=== PATIENT | male | born 1960 | race Caucasian/White ===

== ENCOUNTER 2020-03-09 14:16 | Inpatient (IN) | payer OTHER ==
[~2020-03-09] VITALS: Ht 177.8 cm; Wt 83.5 kg
[~2020-03-09 14:16] MED LIST: GLUCOPHAGE1000 MG PO; LISINOPRIL5 MG PO; NORCO 5-325 TA1 EACH PO; UNKNOWN CHOLESTEROL; [UNRECOGNIZED DRUG - REMARK]
[2020-03-09 14:29] VITALS: BP 155/90
[2020-03-09] MEDS ORDERED: FAST ACTING INSULIN SUBQ (14:33)
[2020-03-09] MEDS ORDERED: LANTUS SUBQ (14:33)
[2020-03-09 15:30] LABS: ABSOLUTE BASOPHILS 0.1 thou/uL (0.0-0.2); ABSOLUTE MONOCYTES 0.9 thou/uL (0.0-1.2); ABSOLUTE NEUTROPHILS 10.4 thou/uL (1.6-8.1); BASOPHILS 0.5 %; EOSINOPHILS 0.2 %; HEMATOCRIT 42.4 % (42.0-52.0); HEMOGLOBIN 14.1 gm/dL (14.0-18.0); MCH 28.6 pg (26.0-34.0); MCHC 33.3 g/dL (28.0-37.0); MCV 85.9 fL (80.0-100.0); MONOCYTES 7.5 %; MPV 8.8 fl. (7.2-11.1); NUCLEATED RBCS 0 /100WBC; PLATELET COUNT* 266 thou/uL (150-400); POLYS 83.8 %; RBC 4.93 mil/uL (4.50-6.00); RDW-CV 13.1 % (10.5-14.5); WBC 12.4 thou/uL (4.0-11.0)
[2020-03-09 15:33] LABS: CALCIUM 9.2 mg/dL (8.5-10.1); CREATININE 1.2 mg/dL (0.6-1.3); POTASSIUM 4.6 mmol/L (3.5-5.1)
[2020-03-09 15:38] LABS: TOTAL BILIRUBIN 0.9 mg/dL (<0.1-1.0); TOTAL PROTEIN 7.7 g/dL (6.4-8.2)
[2020-03-09 17:54] VITALS: BP 128/81
[2020-03-09 18:01] VITALS: BP 165/88
--- NOTE | 2020-03-09 18:51 | NUR ---
PT RESTING IN BED. PT DENIED ANY NEEDS. NPO AFTER MIDNIGHT. FALL RISK PRECAUTIONS IN PLACE. HOURLY ROUNDING COMPLETED. WILL CONTINUE TO MONITOR.
[2020-03-09 21:20] VITALS: BP 110/68
[2020-03-10 00:30] VITALS: BP 180/62
[2020-03-10 04:03] LABS: ABSOLUTE BASOPHILS 0.1 thou/uL (0.0-0.2); ABSOLUTE EOSINOPHILS 0.1 thou/uL (0.0-0.7); ABSOLUTE LYMPHOCYTES 2.1 thou/uL (0.8-5.3); ABSOLUTE NEUTROPHILS 5.4 thou/uL (1.6-8.1); BASOPHILS 0.8 %; EOSINOPHILS 1.5 %; HEMATOCRIT 38.9 % (42.0-52.0); HEMOGLOBIN 13.2 gm/dL (14.0-18.0); LYMPHOCYTES 24.5 %; MCH 28.6 pg (26.0-34.0); MCHC 34.1 g/dL (28.0-37.0); MONOCYTES 11.6 %; MPV 8.5 fl. (7.2-11.1); NUCLEATED RBCS 0 /100WBC; PLATELET COUNT* 271 thou/uL (150-400); POLYS 61.6 %; RBC 4.62 mil/uL (4.50-6.00); RDW-CV 12.9 % (10.5-14.5); WBC 8.7 thou/uL (4.0-11.0)
[2020-03-10 04:43] LABS: POTASSIUM 3.5 mmol/L (3.5-5.1)
--- NOTE | 2020-03-10 05:02 | NUR ---
PATIENT HAS SLEPT WELL THROUGHOUT THE NIGHT. VSS ON RA. NO C/O PAIN. MEDICATIONS GIVEN ORDERED AND CHARTED. PATIENT HAS RMAINED NPO SINCE MIDNIGHT. IV IN RIGHT AC-NS @ 100ML/HR. IV ABT GIVEN ORDERED AND CHARTED. PATIENT INSTRUCTED TO USE CALL LIGHT WHEN NEEDING ASSISTANCE. HOURLY ROUNDS MADE. WILL CONTINUE WITH PLAN OF CARE AND NURSING TO MONITOR.
[2020-03-10 07:00] VITALS: BP 136/85
--- NOTE | 2020-03-10 11:52 | NUR ---
CM SPOKE TO THE PT TO DISCUSS HIS HOME SITUATION, DISCHARGE PLANNING, AND TO INFORM OF THE ROLE OF CM. PT A&O. PT ACTIVE AND INDEPENDENT WITH ADL'S, AND IS SELF-EMPLOYED. PT HAS 0 HX OF HH OR SNF. PT DOES NOT HAVE INSURANCE AND THIS MAY BE A BARRIER FOR DISCHARGE PLANNING DEPENDING ON WHAT IS NEEDED AT D/C. CM PROVIDED THE PT WITH A COMMUNITY RESOURCE LIST, CONTACT INFO FOR THE [facility], AND A MEDIC[employer] ASSISTANCE CO-PAY CARD. CM WILL REMAIN AVAILABLE TO ASSIST AND FOLLOW NEEDED.
--- NOTE | 2020-03-10 13:56 | NUR ---
Nutrition: Pt admitted with Lt foot wound. Big toe is black. Wt: 184#; CHO controlled diet ordered. BG 126-216, alb 3. RD will order Norbert for wound healing. GOALS: tight BG control, good po intake, Norbert BID. Consider mild risk.
--- NOTE | 2020-03-10 14:43 | CON ---
[address] [address] CONSULTATION Name: ANNELIESE ISSA Room: [address] IN .R.#: [id number] Admission: 03/09/20 Attend Phys: Manoj Blanco MD Discharge: Date of : 60 Report #: [id number] THIS REPORT FOR: //name// cc: VITO Hall family physician/PCP VITO Hall family physician/PCP ~ THIS REPORT FOR: //name// CC: Manoj Blanco FAM physician/PCP ADMISSION DIAGNOSIS: Diabetic foot ulceration, left great toe with soft tissue infection . HISTORY OF PRESENT ILLNESS: A 59-year-old male admitted through the ED for worsening infection to the left medial great toe with ulceration. He denies fevers, chills, nausea or malaise. He first noticed a blister roughly 5 days ago that continuing worsened, then increasingly enlarged with increased inflammation to the foot. He has type 2 diabetes mellitus with peripheral neuropathy. He is on parenteral vancomycin 1.25 grams q. 12 hours. Wound culture pending, blood cultures pending. X-ray negative for bone destruction underlying the left hallux ulceration. LABORATORY DATA: WBC 8.7, RBC 4.62, hemoglobin 13.2, hematocrit 38.9, platelets 271. BUN 13, creatinine 1.0, glucose 126. Hemoglobin A1c 10.0. PHYSICAL EXAMINATION: Large penetrating ulceration to the left medial hallux that measures roughly 4.0 x 4.0 x 0.4 cm. The wound has yellow/brown fibronecrotic tissue with no granulation. There is surrounding inflammation and swelling consistent with cellulitis extending to the dorsal foot and ankle. He has strong dorsalis pedis and posterior tibial pulses to both feet. He has abundant digital and pedal hair growth, no pallor or cyanosis to the feet. No left popliteal adenopathy or calf pain. IMPRESSION: Diabetic foot ulceration to left medial hallux with deep tissue infection. PLAN: An excisional ulcer debridement performed with scissors to excise subcutaneous tissue from the wound bed down to bleeding tissue. The wound was cleansed and dressed with Aquacel Ag and rolled gauze. I ordered an MRI of the left foot with contrast to evaluate for osteomyelitis. Bed rest today. I explained to the patient, he may require hallux amputation should he have or develop osteomyelitis. <ELECTRONICALLY SIGNED> By: Eduardo Cadet DPM 03/10/20 1443 0730 [id number] Cadet DPM /nt
[2020-03-10 16:26] VITALS: BP 140/94
--- NOTE | 2020-03-10 16:40 | NUR ---
PT REMAINED ALERT AND ORIENTED. PT RESTING IN BED. FALL RISK PRECAUTIONS IN PLACE. HOURLY ROUNDING COMPLETED. WILL CONTINUE TO MONITOR.
[2020-03-10 18:27] LABS: URINE BILIRUBIN NEGATIVE (Negative); URINE BLOOD NEGATIVE (Negative); URINE CLARITY CLEAR; URINE COLOR YELLOW; URINE GLUCOSE-RANDOM 3+ (Negative); URINE KETONES TRACE (Negative); URINE LEUKOCYTES-REFLEX NEGATIVE (Negative); URINE NITRITE-REFLEX NEGATIVE (Negative); URINE PROTEIN NEGATIVE (Negative)
[2020-03-10 20:30] VITALS: BP 126/71
[2020-03-11 04:00] VITALS: BP 100/48; BP 128/87
--- NOTE | 2020-03-11 04:23 | NUR ---
PT HAD UNEVENTFUL NIGHT, DENIES PAIN, HAS BEEN NPO SINCE MIDNIGHT FOR SURG TODAY. PM BLOODSUGAR WAS 213 AND INSULIN WAS ADMINISTERED, PT SAFETY MEASURES IN PLACE, BED ALARM ON WITH BED IN LOWEST POSITION.
[2020-03-11 04:37] LABS: ABSOLUTE BASOPHILS 0.1 thou/uL (0.0-0.2); ABSOLUTE EOSINOPHILS 0.2 thou/uL (0.0-0.7); ABSOLUTE LYMPHOCYTES 1.7 thou/uL (0.8-5.3); ABSOLUTE MONOCYTES 0.9 thou/uL (0.0-1.2); ABSOLUTE NEUTROPHILS 5.1 thou/uL (1.6-8.1); BASOPHILS 0.8 %; EOSINOPHILS 2.4 %; HEMATOCRIT 39.8 % (42.0-52.0); HEMOGLOBIN 13.7 gm/dL (14.0-18.0); LYMPHOCYTES 21.7 %; MCH 28.7 pg (26.0-34.0); MCHC 34.3 g/dL (28.0-37.0); MCV 83.7 fL (80.0-100.0); MONOCYTES 11.3 %; MPV 8.8 fl. (7.2-11.1); NUCLEATED RBCS 0 /100WBC; PLATELET COUNT* 271 thou/uL (150-400); POLYS 63.8 %; RBC 4.75 mil/uL (4.50-6.00); RDW-CV 12.8 % (10.5-14.5)
[2020-03-11 05:00] LABS: CALCIUM 8.4 mg/dL (8.5-10.1); POTASSIUM 3.8 mmol/L (3.5-5.1)
[2020-03-11 08:30] VITALS: BP 160/84
--- NOTE | 2020-03-11 14:41 | NUR ---
CM INFORMED OF PLANNED SX FOR PT, AND POSSIBLE PLAN FOR PT TO TRANSITION TO [facility] ABT'S PRIOR TO D/C. CM LINDSAY REMAIN AVIALABLE TO ASSIST AND FOLLOW NEEDED.
[2020-03-11 15:24] VITALS: BP 142/89
--- NOTE | 2020-03-11 19:13 | NUR ---
Pt AOx4. Pt up ad liliana in room. Tolerating IV antibiotics. C/O mild pain in bilat feet, [place] PO ordered for pain. Pt is on carb control diet and receiving insulin. Surgery scheduled for tomorrow. Pt aware. will continue to monitor
[2020-03-11 20:00] VITALS: BP 133/72
--- NOTE | 2020-03-12 05:22 | NUR ---
PT HAD COMPLAINT OF NEUROPATHY PAIN THIS HS, HE TAKES NEURONTIN AND SOMEHOW DID NOT GET IT ON HIS MED LIST ON ADMIT, DR MILLER WAS CONTACTED AND THIS WAS STARTED FOR HIS PAIN. PT CONTINUES TO RECEIVE VANCOMYCIN IV AND HAS BEEN NPO SINCE MIDNIGHT FOR PENDING SURG TODAY WITH DR CHAVARRIA. LOVENOX HAS BEEN HELD LAST PM AND THE AM DOSE TODAY, WOUND DSG IS CDI, SAFETY MEASURES IN PLACE, WCTM
[2020-03-12 08:37] VITALS: BP 123/86
[2020-03-12 09:58] VITALS: BP 123/86
--- NOTE | 2020-03-12 13:00 | NUR ---
PT.IN SURGERY THIS AFTERNOON. DISCUSSED WITH . HE SAID PLAN WILL BE FOR PT.TO HAVE IVAB THROUGH THE WEEKEND AND DISCHARGE HOME SUNDAY ON ORAL ANTIBIOTICS.
--- NOTE | 2020-03-12 14:34 | EKG ---
[place] [address] ELECTROCARDIOGRAM REPORT Name: ANNELIESE ISSA Room: [address] ADM IN M.R.#: [id number] Admission: 03/09/20 Attend Phys: Manoj Blanco, Discharge: Date of : 60 Date of Service: 03/12/20 1105 Report #: [id number] THIS REPORT FOR: //name// [facility] Test Date: 2020-03-12 Test Time: 11:05:06 Pat Name: ANNELIESE ISSA Department: Room: [address] Gender: M [employer] Vehicle Operator: : 1960 Requested By: Eduardo Cadet Order Number: [id number] Sara MD: Antonio Guillen Measurements Intervals [place] Rate: 71 P: 54 TN: 167 QRS: 28 QRSD: 96 T: 41 QT: 381 QTc: 414 Interpretive Statements Sinus rhythm Baseline wander in lead(s) V3 No previous ECG available for comparison Electronically Signed On 03-12-2020 14:34:19 CDT by Antonio Guillen [email or web address] <ELECTRONICALLY SIGNED> By: Antonio Guillen MD, [facility] 03/12/20 1434 1105 1105 Antonio Guillen MD, [facility] /EPI
--- NOTE | 2020-03-12 17:15 | NUR ---
PT A&Ox4. CURRENTLY IN SURGERY. PRE SURGERY PT WAS ON RA, UP AD EARL AND ROUTINE VITALS. IV RIGHT FA PATENT. PT STABLE. WILL UPDATE NOTE ONCE PT RETURNS.
[2020-03-12 18:26] VITALS: BP 137/80
--- NOTE | 2020-03-12 18:44 | NUR ---
PT RETURNED TO FLOOR FROM PACU ABOUT 1824. PT STABLE. VITALS STABLE. ON RA. IV PATENT. TOLERATING DIET. DENIED N/V. RATING PAIN 6/10 ON SURGICAL FOOT, DENIED PAIN MEDS AT THIS TIME. NON WEIGHT BEARING ON LEFT FOOT. DRESSING C/D/I. WILL CONTINUE TO MONITOR.
[2020-03-12 20:10] VITALS: BP 114/79
[2020-03-13 00:22] VITALS: BP 95/56
[2020-03-13 03:49] VITALS: BP 138/88
[2020-03-13 04:01] LABS: CALCIUM 8.3 mg/dL (8.5-10.1); CREATININE 1.1 mg/dL (0.6-1.3); MAGNESIUM 1.8 mg/dL (1.8-2.4); POTASSIUM 4.1 mmol/L (3.5-5.1)
--- NOTE | 2020-03-13 04:28 | NUR ---
PATIENT HAS REMAINED ALERT AND ORIENTED X 4 THROUGHOUT THE SHIFT AND RESTING QUIETLY ON HOURLY ROUNDS. UP TO BR TO VOID. AMBULATION WITH WALKER/SBA AND NWB LLE. STEADY GAIT. DRESSING LEFT FOOT CLEAN AND DRY. ELEVATED ON FOLDED BLANKET FROM OR. LOW-GRADE TEMPERATURE. TYLENOL PROVIDED EARLY AM. IV ANTIBIOTICS PER ORDER. CONTINUE TO MONITOR.
[2020-03-13 08:00] VITALS: BP 97/57
--- NOTE | 2020-03-13 18:18 | NUR ---
PATIENT ALERT AND ORIENTED X 4. VITAL SIGNS STABLE ON ROOM AIR. UP ASSISTANCE IN ROOM. IV PATENT AND SALINE LOCKED. ANTIBIOTICS GIVEN PER OCT. DENIES NAUSEA AT THIS TIME. PAIN BEING MANAGED WITH PO MEDICATION. DRESSING TO LEFT FOOT CLEAN, DRY, INTACT. HOURLY ROUNDS MAINTAINED THROUGHOUT THE SHIFT. CALL LIGHT WITHIN REACH. NURSING WILL CONTINUE TO MONITOR.
[2020-03-13 20:00] VITALS: BP 102/60
[2020-03-14] VITALS: BP 92/63
[2020-03-14 04:12] LABS: HEMOGLOBIN 13.2 gm/dL (14.0-18.0); MCH 29.1 pg (26.0-34.0); MCHC 34.7 g/dL (28.0-37.0); MCV 83.7 fL (80.0-100.0); MPV 8.3 fl. (7.2-11.1); RBC 4.54 mil/uL (4.50-6.00); RDW-CV 13.1 % (10.5-14.5); WBC 8.9 thou/uL (4.0-11.0)
[2020-03-14 04:24] LABS: CALCIUM 8.3 mg/dL (8.5-10.1); CREATININE 0.9 mg/dL (0.6-1.3); MAGNESIUM 1.9 mg/dL (1.8-2.4); POTASSIUM 4.2 mmol/L (3.5-5.1)
[2020-03-14 08:00] VITALS: BP 125/83
[2020-03-14 15:35] VITALS: BP 117/67
--- NOTE | 2020-03-14 17:37 | NUR ---
PATIENT ALERT AND ORIENTED X 4. VITAL SIGNS STABLE ON ROOM AIR. UP WITH ASSISTANCE TO BATHROOM. IV PATENT AND SALINE LOCKED. ANTIBIOTICS GIVEN PER OCT. DENIES NAUSEA AT THIS TIME. PAIN BEING MANAGED WITH PO MEDICATION. DRESSING TO LEFT FOOT CHANGED BY DR. CHAVARRIA TODAY. CLEAN, DRY, AND INTACT. SCD IN PLACE TO RIGHT CALF. FALL PRECAUTIONS IN PLACE AND BED ALARM ON. HOURLY ROUNDS MAINTAINED THROUGHOUT THE SHIFT. CALL LIGHT WITHIN REACH. NURSING WILL CONTINUE TO MONITOR.
[2020-03-14 19:50] VITALS: BP 110/62
--- NOTE | 2020-03-15 06:33 | NUR ---
PATIENT HAS SLEPT WELL THROUGHOUT MOST OF THE NIGHT. VSS ON RA. MEDICATIONS GIVEN ORDERED AND CHARTED. PAIN WELL CONTROLLED. PATIENT IS UP WITH WALKER TO THE BATHROOM. DRESSING TO LEFT LOWER EXTREMITY IS C/D/I. IV IN RIGHT FOREARM-SL. PATIENT INSTRUCTED TO USE CALL LIGHT WHEN NEEDING ASSISTANCE. HOURLY ROUNDS MADE. WILL CONTINUE WITH PLAN OF CARE AND NURSING TO MONITOR.
[2020-03-15 08:00] VITALS: BP 138/88
--- NOTE | 2020-03-15 10:07 | NUR ---
cm f/u with pt to see if he would need med assist, pt states he makes an average of $2000/mo and he can afford his medication. normally his "highest cost $50.00." pt stated he is eager to d/c as he is hopeful it will be today.
[2020-03-15 15:48] VITALS: BP 116/74
--- NOTE | 2020-03-15 18:09 | NUR ---
PT A&Ox4. VITALS STABLE. IV PATENT, ABX INFUSING. DRESSING ON LEFT FOOT C/D/I. PAIN CONTROLLED. DENIED N/V. SCD IN PLACE. UP WITH STB USING WALKER. NWB ON LEFT FOOT. CALL LIGHT WITHIN REACH. WILL CONTINUE TO MONITOR.
[2020-03-15 19:37] VITALS: BP 112/68
--- NOTE | 2020-03-16 04:11 | NUR ---
PT A&OX4, ON ROOM AIR, VSS, PT NON-WEIGHT BEARING LLE, ACCU CHECK COMPLETED, HOURLY ROUNDINGS COMPLETED, PT SLEEPING WELL. WILL CONTINUE WITH PLAN OF CARE.
[2020-03-16 08:45] VITALS: BP 133/84
[2020-03-16] MEDS ORDERED: NEURONTIN 300M300 M2 PO (10:30)
[2020-03-16] MEDS ORDERED: HYDROCODON-ACE1 EAC7 PO (10:30)
[2020-03-16] MEDS ORDERED: MIRALAX17 GM PO (10:30)
[2020-03-16 11:06] VITALS: BP 133/84
[2020-03-16] MEDS ORDERED: BACTRIM DS TAB1 EAC1 PO (11:31)
--- NOTE | 2020-03-16 12:17 | NUR ---
PT.TO DISCHARGE TODAY. DISCUSSED WITH HIM. NURSING TO INSTRUCT PT.ON DRESSING CHANGES TO DO HIMSELF AT HOME. SHE WILL SEND SOME SUPPLIES WITH HIM. SAID HE COULD FOLLOW UP WITH HIM IN OFFICE IN ONE WEEK. COST WOULD BE ABOUT $90. IF NOT HE CAN F/U AT [facility]. PRESCRIPTION ON CHART FOR BACTRIM DS. PT. ASKED THAT IT BE CALLED INTO [facility] ON [address]. CALLED PRESCRIPTION IN WRITTEN TO [phone]. PT.SAID HE HAS A RIDE. HE WILL WAIT ABOUT AN HR OR MORE SO PRESCRIPTION CAN BE READY.
--- NOTE | 2020-03-16 13:20 | NUR ---
PT DISCHARGED TO HOME BY WHEELCHAIR WITH NURSING STAFF AND MOTHER AT 1310. IV OUT. PT STABLE. PAIN CONTROLLED. DRESSING CHANGED. PERSONAL ITEMS AND PAPER SCRIPTS SENT WITH PT.
--- NOTE | 2020-03-17 13:48 | CON ---
[address] [address] CONSULTATION Name: ANNELIESE ISSA Room: [address] IN M.R.#: [id number] Admission: 03/09/20 Attend Phys: Manoj Blanco MD Discharge: 03/16/20 Date of : 60 Report #: [id number] THIS REPORT FOR: //name// cc: VITO Hall family physician/PCP VITO Hall family physician/PCP ~ THIS REPORT FOR: //name// CC: Manoj Blanco [facility] physician/PCP DATE OF SERVICE: 03/14/2020 CHIEF COMPLAINT: Postoperative day #2 for left hallux amputation with primary closure. Surgical bone and tissue cultures growing gram-negative rods and gram-positive cocci. He is on parenteral vancomycin and ceftriaxone with good tolerance. He has minimal discomfort to the left leg, good appetite. He has been afebrile with no malaise. He has remained nonweightbearing as instructed, although he may place some weight to the left foot in a surgical shoe for transfers or short distances. Surgical pathology is pending. LABORATORY DATA: WBC 8.9, RBC 4.54, hemoglobin 13.2, hematocrit 38.0. BUN 13, creatinine 0.9, glucose 226. PHYSICAL EXAMINATION: The incisions are well coapted with decreased inflammation. There is no pallor, cyanosis or signs of acute vascular embarrassment or dehiscence. No underlying fluctuance or crepitation. The foot is warm with palpable dorsalis pedis and posterior tibial pulses and there is pedal and digital hair growth. IMPRESSION: Osteomyelitis, status post left hallux amputation, type 2 diabetes mellitus with peripheral neuropathy. PLAN: The incision was cleansed, dried and redressed with Aquacel AG, ABD, Kerlix and Olayinka. Awaiting final surgical culture results. <ELECTRONICALLY SIGNED> By: Eduardo Cadet DPM 03/17/20 1348 0837 [id number] Cadet DPM /nt
--- NOTE | 2020-03-17 13:48 | OP ---
[address] [address] OPERATIVE REPORT Name: ANNELIESE ISSA Room: [address] IN M.R.#: [id number] Admission: 03/09/20 Attend Phys: Manoj Blanco MD Discharge: 03/16/20 Date of : 60 Report #: [id number] THIS REPORT FOR: //name// cc: VITO Hall family physician/PCP VITO Hall family physician/PCP ~ THIS REPORT FOR: //name// CC: Manoj PADRON physician/PCP DATE OF SERVICE: 03/11/2020 SURGEON: Eduardo Cadet DPM. PREOPERATIVE DIAGNOSIS: Osteomyelitis, left great toe, with nonhealing ulceration. POSTOPERATIVE DIAGNOSIS: Osteomyelitis, left great toe, with nonhealing ulceration. PROCEDURE: Amputation, left great toe, at first MTP joint with primary closure. COMPLICATIONS: None. ESTIMATED BLOOD LOSS: Minimal. HEMOSTASIS: Left ankle pneumatic tourniquet at 250 mmHg. SPECIMENS: Left great toe. CULTURES: 1. Bone, distal foot, left great toe, aerobic and anaerobic. 2. Soft tissue, left great toe, aerobic and anaerobic. DESCRIPTION OF PROCEDURE: The patient was brought to the OR and placed on the table supine with induction of MAC anesthesia. A well-padded left ankle pneumatic tourniquet was placed. A local anesthetic block was given to the left hallux and the extremity was prepped and draped aseptically. After exsanguination, the tourniquet was inflated and a tennis racquet incision was created around the left great toe joint with a #15 scalpel. The toe was disarticulated at the first MTP joint with no signs of infection at the level of the great toe joint or distal first metatarsal. The skin was remodeled and the extensor and flexor tendons were resected. Electrocautery was used for hemostasis. The wound was flushed with sterile saline with bacitracin irrigant. The skin was then closed primarily with 3-0 nylon in simple interrupted fashion, with complete closure of the distal [place] [address] OPERATIVE REPORT Name: ANNELIESE ISSA Room: [facility] IN ..#: [id number] Admission: 03/09/20 Attend Phys: Manoj Blanco MD Discharge: 03/16/20 Date of : 60 Report #: [id number] tissue and bone from the left great toe were sent for aerobic and anaerobic cultures. The remaining hallux was sent for surgical pathology. The tourniquet was deflated with normal vascular return. The foot was cleansed and a sterile compressive bandage with Betadine-soaked Adaptic, ABDs, Kerlix gauze and Olayinka bandage were applied. The patient left the OR with no pain or complications noted. <ELECTRONICALLY SIGNED> By: Eduardo Cadet DPM 03/17/20 1348 2229 [id number] Cadet DPM /adelia
--- NOTE | 2020-03-17 13:48 | CON ---
[address] [address] CONSULTATION Name: ANNELIESE ISSA Room: [address] IN M.R.#: [id number] Admission: 03/09/20 Attend Phys: Manoj Blanco MD Discharge: 03/16/20 Date of : 60 Report #: [id number] THIS REPORT FOR: //name// cc: VITO Hall family physician/PCP VITO Hall family physician/PCP ~ THIS REPORT FOR: //name// CC: Manoj Blanco FAM physician/PCP DATE OF SERVICE: 03/13/2020 CHIEF COMPLAINT: Postoperative day #1 for left hallux amputation with primary closure for osteomyelitis. He denies pain to the surgical site, although he has this generalized neuropathy pain. He has been afebrile, good appetite. Denies fevers, chills or malaise. Surgical bone and tissue cultures are pending. Preoperative swab culture pending. He is on parenteral vancomycin and ceftriaxone. He has been nonweightbearing to the commode using his walker. LABORATORY DATA: Sodium 135, potassium 4.1, chloride 101, CO2 of 30, BUN 12, creatinine 1.1, glucose 267. PHYSICAL EXAMINATION: VITAL SIGNS: T-max 100.6, temperature 98.2, pulse 82, respirations 16, blood pressure 97/57. EXTREMITIES: Surgical incisions are well approximated with low-grade inflammation and edema. No drainage/bleeding, no underlying fluctuance or crepitation. Immediate capillary refill to the kalin-incision. No lopez erythema to the left leg or cellulitis. No lesions noted to the right foot or leg. 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 PLAN: The incision was cleansed and dried, dressed with Aquacel Ag, ABD, Kerlix and Olayinka bandage. The patient to remain nonweightbearing; although, I will allow partial weightbearing to the heel for transfers and short distances. I will order physical therapy evaluation, awaiting surgical culture and pathology. <ELECTRONICALLY SIGNED> By: Eduardo Cadet DPM 03/17/20 1348 1204 [id number] Cadet DPM /nt
== END 2020-03-16 13:24 | disposition home or self-care (01) | DRG 617 ==
LOC: M.ERS 14:16 → M.TBA-ER 16:05 → M.ORTHSURG 17:56
PROVIDERS: Internal Medicine; Physician Assistant; ADMIT Internal Medicine; ATTEND Internal Medicine
PROC: 0JBR0ZZ Excision of Left Foot Subcutaneous Tissue and Fascia, Open Approach (ICD-10-PCS; principal; 2020-03-10)
PROC: 0Y6Q0Z3 Detachment at Left 1st Toe, Low, Open Approach (ICD-10-PCS; 2020-03-11)
DX: E11.621 Type 2 diabetes mellitus with foot ulcer (principal); M86.8X7 Other osteomyelitis, ankle and foot; E87.1 Hypo-osmolality and hyponatremia; L97.529 Non-pressure chronic ulcer of other part of left foot with unspecified severity; E11.42 Type 2 diabetes mellitus with diabetic polyneuropathy; E11.69 Type 2 diabetes mellitus with other specified complication; E11.00 Type 2 diabetes mellitus with hyperosmolarity without nonketotic hyperglycemic-hyperosmolar coma (NKHHC); L08.89 Other specified local infections of the skin and subcutaneous tissue; B95.5 Unspecified streptococcus as the cause of diseases classified elsewhere; B96.89 Other specified bacterial agents as the cause of diseases classified elsewhere; K21.9 Gastro-esophageal reflux disease without esophagitis; I10 Essential (primary) hypertension; Z79.899 Other long term (current) drug therapy; Z79.84 Long term (current) use of oral hypoglycemic drugs; Z79.4 Long term (current) use of insulin; Z87.891 Personal history of nicotine dependence; Z03.818 Encounter for observation for suspected exposure to other biological agents ruled out